=== PATIENT | female | born 1995 | race Caucasian/White ===

== ENCOUNTER 2022-02-01 22:11 | Inpatient (IN) ==
[2022-02-01] MEDS ORDERED: PENICILLIN G POTASSIUM 6 MU in DEXTROSE 5% 250 ML IV STA (22:53)
[2022-02-01] MEDS ORDERED: LIDOCAINE 1% LOCAL 20 ML VIAL INFIL PRN (22:53)
[2022-02-01] MEDS ORDERED: OXYTOCIN 30 UNITS/500 ML BAG IV PRN (22:53)
[2022-02-01] MEDS ORDERED: LACTATED RINGER'S 1,000 ML IV PRN (22:53)
[2022-02-01 23:23] LABS: Hematocrit (blood only) 34.6 % (34.1-44.9); Mean Corpuscular Hemoglobin 29.2 pg (25.0-34.0); Mean Corpuscular Hgb Conc 34.7 g/dL (32.0-36.0); Mean Corpuscular Volume 84.2 fL (80.0-100.0); Mean Platelet Volume 11.2 fL (9.4-12.3); Platelet Count 232 K/uL (130-400); Red Blood Count 4.11 M/uL (3.93-5.22); White Blood Count 12.99 K/ul (4.8-10.8)
[2022-02-01] MEDS ORDERED: BUPIVACAINE 0.25% 30 ML VIAL ONE (23:27)
[2022-02-01] MEDS ORDERED: LIDOCAINE 2%/EPINEPHRINE 1:200,000 20 ML SDV ONE (23:27)
[2022-02-01] MEDS ORDERED: ePHEDrine sulfate 50 MG/ML AMP ONE (23:27)
[2022-02-01] MEDS ORDERED: SODIUM CHLORIDE 0.9% INJ 10 ML VIAL ONE (23:27)
[2022-02-01] MEDS ORDERED: fentaNYL citrate 100 MCG/2 ML VIAL ONE (23:27)
[2022-02-01] MEDS ORDERED: fentaNYL 2MCG/ML ROPIVACAINE 1.25MG/ML 100 ML BAG EPI ONE (23:28)
[2022-02-01 23:47] LABS: Albumin Globulin Ratio 1.3 (0.9-2); Albumin Level 3.2 gm/dl (3.4-5.0); BUN Creatinine Ratio 11.5 (10-20); Bilirubin,Total 0.5 mg/dl (0.2-1.0); Calcium 8.6 mg/dl (8.5-10.1); Globulin 2.4 gm/dl (2.5-4.0); Total Protein 5.6 gm/dl (6.0-8.3)
[2022-02-02] MEDS ORDERED: ePHEDrine sulfate 50 MG/ML AMP IV PRN (00:24)
[2022-02-02] MEDS ORDERED: diphenhydrAMINE 50 MG/ML VIAL IV PRN (00:24)
[2022-02-02] MEDS ORDERED: NALOXONE HCL 0.4 MG/1 ML VIAL/CARP IV PRN (00:24)
[2022-02-02] MEDS ORDERED: fentaNYL 2MCG/ML ROPIVACAINE 1.25MG/ML 100 ML BAG EPI PRN (00:24)
[2022-02-02] MEDS ORDERED: ONDANSETRON INJ 2 MG/ML 2 ML VIAL IV PRN (00:24)
[2022-02-02] MEDS ORDERED: PROMETHAZINE HCL 6.25 MG in SODIUM CHLORIDE 0.9% 50 ML IV PRN (00:24)
[2022-02-02] MEDS ORDERED: NALOXONE HCL 1 MG in SODIUM CHLORIDE 0.9% 1000ML 1,000 ML IV PRN (00:24)
[2022-02-02] MEDS ORDERED: NALBUPHINE HCL INJ 10 MG/ML AMP IV PRN (00:24)
--- NOTE | 2022-02-02 00:24 | Anesthesiology Consultation ---
Date of Service February 02, 2022 Assessment & Plan Chart Review Chart Review: Patient NOT seen in Pre Admission Testing and Acceptable Risk for Labor Epidural Consults Requested none ASA ASA2 Proposed Anesthesia Anesthesia Type: Labor Epidural Risk / Benefits Reviewed With: PT / POA / Parent / Guardian, Accepts Plan and Informed Consent Obtained History Height/Weight Height: 5 ft 3 in Weight: 75.296 kg Allergies Allergy/AdvReac Type Severity Reaction Status Date / Time No Known Allergies Allergy Verified 02/01/22 22:30 Medications Home Medications Medication Instructions Recorded Confirmed Last Taken fexofenadine 180 mg tablet 180 mg PO Q24H 05/01/21 02/01/22 02/01/22 (Shona Allergy) prenat.vits,ghislaine,[id number]-inyt-uszxi 1 tab PO DAILY 07/03/21 02/01/22 02/01/22 Active Medications Generic Name Dose Route Start Last Admin Trade Name Freq PRN Reason Stop Dose Admin Lactated Ringer's 1,000 mls @ 125 mls/hr 02/01/22 22:53 02/02/22 00:00 Lr IV 02/03/22 22:52 125 mls/hr .Q8H PRN Infusion L&D Protocol Protocol Past Medical History Medical History LGSIL (low grade squamous intraepithelial dysplasia) Seasonal allergies Varicella vaccination Exercise / Class Metabolic Activity II 4-5 Yardwork/Stairs/Walk up hill Past Family History Family History Aunt Breast cancer paternal Father Prostate cancer Hypertension Grandmother (Maternal) Hypothyroid Denies family history of Ovarian cancer Colorectal cancer Past Surgical History Surgical History History of colposcopy [place] teeth extracted Past Anesthesia History No Hx of Anesthesia Complications and No Family Hx of Anesthesia Complications History of PONV No Hx of PONV and No Hx of Motion Sickness Social History Smoking Status: Never smoker Hx Alcohol Use: No Hx Substance Use: No substance use type: does not use Physical Exam Vital Signs Last Vital Signs Temp 37.4 C 02/01/22 22:25 Pulse 82 02/02/22 00:22 Resp 18 02/01/22 22:31 BP 139/92 02/02/22 00:22 Pulse Ox 99 02/02/22 00:20 ENMT Mouth: no dentition abnormality Thyromental Distance: > or= 3.5 Finger Breadths Mallampati Class: II Neck normal visual inspection Respiratory normal respiratory effort Auscultation: lungs clear to auscultation bilaterally Cardiovascular Rate/Rhythm: regular rate and regular rhythm Psychiatric Orientation: alert Testing Laboratory Results 02/01/22 23:12 02/01/22 23:12
[2022-02-02] MEDS ORDERED: PENICILLIN G POTASSIUM 3 MU in DEXTROSE 5% 100 ML IV PRN (01:53)
[2022-02-02] MEDS ORDERED: HYDROCORTISONE ACETATE 25 MG SUPP PR PRN (02:42)
[2022-02-02] MEDS ORDERED: DIPHTHERIA/TETANUS/PERTUSSIS 0.5 ML SYR/VIAL IM ONE (02:42)
[2022-02-02] MEDS ORDERED: OXYTOCIN 30 UNITS/500 ML BAG IV PRN (02:42)
[2022-02-02] MEDS ORDERED: BENZOCAINE 20% AER SPR 82.5 GM CAN EXT PRN (02:42)
[2022-02-02] MEDS ORDERED: ACETAMINOPHEN 325 MG TAB PO PRN (02:42)
[2022-02-02] MEDS: IBUPROFEN 600 MG TAB PO PRN ×3 (05:54→19:57)
--- NOTE | 2022-02-02 07:20 | History & Physical Report ---
Date of Service February 01, 2022 Assessment & Plan (1) Encounter for supervision of normal intrauterine in primigravida, antepartum: Plan: Lidia is a 26-year-old at 38 weeks 0 days gestational age presents with spontaneous rupture membranes in early labor. 1. Fetus: Cat 1 2. Labor:SROM/ Early labor' 3. GBS positive: PCN (2) Group beta Strep positive: (3) SROM (spontaneous rupture of membranes): (4) Normal labor and delivery: History of Present Illness Primary Care Provider: Lj Murillo is a 26-year-old at 38 weeks 0 days gestational age presents with leakage of fluid. complicated by abnormal Pap with colposcopy showing MARIOLA 2 and GBS positive. OB Labs: Blood Type A Positive 07/11/21 Antibody Screen NEGATIVE 07/11/21 Hemoglobin 12.2 g/dl (12.0-16.0) 11/27/21 Hematocrit 36.6 % (34.1-44.9) 11/27/21 Mean Corpuscular Volume 89.3 fL (80-100) 07/11/21 Platelet Count 291 K/uL (130-400) 07/11/21 Rubella IgG Antibody Immune (Immune) 07/11/21 Rapid Plasma Reagin Nonreactive (Nonreactive) 07/11/21 Hepatitis B Surface Antigen Neg (Neg) 07/11/21 Hepatitis C Antibody Neg (Neg) 07/11/21 HIV (1&2) Ab and P24 Ag, 4th Gener Neg (Neg) 07/11/21 Glucose 1 Hour 50 gm Load 151 mg/dl (70-130) H 11/27/21 OB Optional Labs: Chlamydia trachomatis RNA NOT DETECTED (NOT DETECTED) 07/11/21 Neisseria gonorrhoeae RNA NOT DETECTED (NOT DETECTED) 07/11/21 Labs Reviewed: cf/sma-negative--mln cfdna-low risk--mln declined AFP Allergies Allergy/AdvReac Type Severity Reaction Status Date / Time No Known Allergies Allergy Verified 02/01/22 22:30 Home Medications Medication Instructions Recorded Confirmed Type fexofenadine 180 mg tablet 180 mg PO Q24H 05/01/21 02/01/22 History (Shona Allergy) prenat.vits,ghislaine,[id number]-yual-lzaus 1 tab PO DAILY 07/03/21 02/01/22 History Patient History Medical History (Updated 02/02/22 @ 07:18 by Raffy Rivera MD) LGSIL (low grade squamous intraepithelial dysplasia) Seasonal allergies Varicella vaccination Surgical History History of colposcopy [place] teeth extracted Family History Aunt Breast cancer paternal Father Prostate cancer Hypertension Grandmother (Maternal) Hypothyroid Denies family history of Ovarian cancer Colorectal cancer Social History Smoking Status: Never smoker Second Hand Exposure: No; Hx Alcohol Use: No Hx Substance Use: No Preferred Language: German Communication Ability: Effective Division Supervisor Required: No Beliefs That Will Affect Care: None marital status: marital status details: Dana Templeton (27) [phone] Current Living Situation: Spouse Current Living Situation Comment: FOB and no pets current occupational status: employed current occupation: Physical therapist computer assistant Other Information That Helps Us Care for You: No Feels Safe at Home: Yes Safety Concerns: Feels Safe At This Time Assistive Devices: Glasses Physical Exam Genitourinary: Manual OB Exam: + cervical dilation 4 cm, + cervical effacement 90%, + station -1 and + amniotic fluid (SROM) clear OB Exam Monitor Tracing: + external FHT monitor used, + external uterine monitor used, + category I and + normal FHT variability; no early decelerations present, no late decelerations present and no variable decelerations Results & Data ([facility]) Vital Signs (Past 12 Hours) Vital Signs Temp Pulse Resp BP 02/01/22 22:31 18 02/01/22 22:44 81 143/95 H 02/01/22 22:25 18 02/01/22 22:25 37.4 C 18 02/01/22 22:27 80 140/92 Coding Level of Care Code None Diagnoses Encounter for supervision of normal intrauterine in primigravida, antepartum Z34.00 Group beta Strep positive B95.1 SROM (spontaneous rupture of membranes) Normal labor and delivery O80
--- NOTE | 2022-02-02 07:54 | Delivery Summary ---
DATE OF SERVICE: 02/02/2022 PROCEDURE: Normal spontaneous vaginal delivery with bilateral periurethral and first-degree perineal laceration repairs. SURGEON: Raffy Rivera MD PREOPERATIVE DIAGNOSES: 1. Single intrauterine at 38 weeks 0 days gestational age. 2. Spontaneous rupture of membranes in labor. 3. Abnormal Pap showing MARIOLA 2. 4. GBS positive. POSTOPERATIVE DIAGNOSES: 1. Single intrauterine at 38 weeks 0 days gestational age. 2. Spontaneous rupture of membranes in labor. 3. Abnormal Pap showing MARIOLA 2. 4. GBS positive. 5. Status post procedure. ESTIMATED BLOOD LOSS: 200 mL. DRAINS: Straight cath at the completion of the case. URINE OUTPUT: Per straight cath. COMPLICATIONS: None. FINDINGS: Viable with weight and Apgars pending. INDICATIONS: Lidia is a 26-year-old G1, P0, admitted at 38 weeks 0 days gestational age with spon taneous rupture of membranes in labor. The patient was initially found to be 4 cm dilated, 90% effac ed, negative 1 station. She progressed rapidly in labor to complete-complete, +2 station, at which t [place] she felt the urge to push and pushed for approximately 30 minutes to achieve delivery. DESCRIPTION OF PROCEDURE: The patient progressed to 10 cm dilated, 100% effaced, positive 2 station, pushed over intact perineum with epidural anesthesia and delivered a viable with weight and Apgars as noted above. Head of the delivered in MARIANA position, restituted to left transverse. No nuchal cord was noted. Body and shoulders quickly followed. was noted to be vigorous s oon after delivery and 1-minute delayed cord clamping was initiated. Cord was then double clamped an d cut. remained on maternal abdomen. Cord blood was obtained. Attention was then turned to delivery of the placenta, which was delivered intact, 3-vessel cord, gentle cord traction. On inspe ction of the perineum, vagina, cervix, there was noted to be a bilateral periurethral and a first-deg ree perineal lacerations, which were repaired with 3-0 Vicryl. Needle, sponge, and instrument counts were correct at the completion of the case. Both mother and were stable in the immediate po st-delivery period. Job ID: [id number]
[2022-02-02] MEDS: DOCUSATE SODIUM 100 MG CAP PO SCH ×2 (08:18→19:57)
[2022-02-02] MEDS: FERROUS SULFATE 325 MG TAB PO SCH (08:18)
[2022-02-02] MEDS: PRENATAL VITAMIN 1 TAB PO SCH (08:18)
[2022-02-02] MEDS ORDERED: POTASSIUM CHLORIDE CRTAB 20 MEQ TABCR PO ONE (09:00)
--- NOTE | 2022-02-02 09:03 | Anesthesia Procedure Note ---
Date of Service February 02, 2022 Anesthesia Post Epidural Note Vital Signs Vital Signs: Temp Pulse Resp BP Pulse Ox 99.3 F 78 18 122/80 98 02/02/22 02:47 02/02/22 08:02 02/02/22 05:43 02/02/22 08:02 02/02/22 02:45 Pain Intensity Bilateral Lower Abdomen: Pain Intensity: 8 Notes Mental Status: alert / awake / arousable and participated in evaluation Nausea / Vomiting: adequately controlled Pain: adequately controlled Airway Patency, RR, SpO2: stable & adequate BP & HR: stable & adequate Hydration State: stable & adequate Neuraxial Anesthesia: was administered and sensory block is resolving Anesthetic Complications: no major complications apparent and Pt Satisfied with anesthetic care Epidural: Removed without complications and With tip intact
--- NOTE | 2022-02-03 05:24 | Obstetrical Progress Note ---
Date of Service <Khloe KeatingDO nalini - Last Filed: 02/03/22 06:18> February 03, 2022 Assessment & Plan <Khloe KeatingDO nalini - Last Filed: 02/03/22 06:18> (1) care following vaginal delivery: Patient is PPD 1 s/p and doing well. - Eating well, voiding well, ambulating well - Vitals reviewed and within normal limits - Pain well controlled with analgesics - OOB, ambulation, diet progression as tolerated - Blood type: A+, GBS pos, rubella immune - Plan to discharge today- pt wishes to go home today - After discharge, 6 week follow up with Dr. Rivera <Misti Reed MD - Last Filed: 02/03/22 07:17> (1) care following vaginal delivery: Subjective <Khloe KeatingDO nalini - Last Filed: 02/03/22 06:18> Patient is a 26 yo female who is now PPD #1 following spontaneous vaginal delivery at 38 weeks. Reports feeling well this morning. She denies abdominal cramping and 1/10 pain well managed on analgesics. Voiding without issue. Tolerating regular meals overnight and able to ambulate some. She has passed gas but no bowel movements. Persistent lochia with some improvement this morning. Currently breast feeding. Pt expresses desires to go home today. Review of Systems Denies fever, chills, sweats. Denies SOB, difficulty breathing, chest pain, palpitations, and chest pressure. Denies breast pain. Denies dysuria. Denies headache or changes in vision. Physical Exam <Khloe MezaCydney Espinosa DO - Last Filed: 02/03/22 06:18> General: Alert and oriented. No acute distress. CV: Regular rate and rhythm. No murmurs. Respiratory: CTA bilaterally. No rhonchi, wheezes, or crackles. No increased work of breathing. Abdomen: Positive bowel sounds. Soft, nontender, non distended. Uterus: Fundus firm and palpable 3 cm below the umbilicus. Lower extremities: No LE edema. No deep calf pain. Black's negative bilaterally. Results & Data ([facility]) <Khloe MezaCydney Espinosa DO - Last Filed: 02/03/22 06:18> Vital Signs (Past 12 Hours) Vital Signs Temp Pulse Resp BP Pulse Ox O2 Del Method 02/02/22 23:17 36.8 C 81 18 126/88 98 Room Air 02/02/22 20:10 36.8 C 85 18 124/80 <Misti Reed MD - Last Filed: 02/03/22 07:17> Co-Signing Physician Notes Resident Physician Supervision Note: I interviewed and examined the patient. Discussed with Dr. Espinosa and agree with findings and plan as documented in the note. Any exceptions or clarifications are listed here: Patient desires d/c but peds may want another day of observation of the infant due to GBS+ with inadequate treatment. Pt aware. Documented By: Misti Reed MD, FACOG Resident Activity Tracking <Khloe Espinosa, - Last Filed: 02/03/22 06:18> Resident Involvement: Resident Care Provided Care Provided: OB Delivery
[2022-02-03 06:39] LABS: Hematocrit (blood only) 31.6 % (34.1-44.9); Hemoglobin 10.6 g/dl (12.0-16.0)
[2022-02-03] MEDS: PRENATAL VITAMIN 1 TAB PO SCH (07:30)
[2022-02-03] MEDS: IBUPROFEN 600 MG TAB PO PRN ×3 (07:30→23:15)
[2022-02-03] MEDS: FERROUS SULFATE 325 MG TAB PO SCH (07:30)
[2022-02-03] MEDS: DOCUSATE SODIUM 100 MG CAP PO SCH ×2 (07:30→20:24)
[2022-02-03 19:55] LABS: Basophils # (auto) 0.05 K/uL (0-0.2); Basophils % (auto) 0.4 %; Eosinophils # (auto) 0.18 K/uL (0-0.50); Eosinophils % (auto) 1.4 %; Hematocrit (blood only) 30.3 % (34.1-44.9); Hemoglobin 10.3 g/dl (12.0-16.0); Immature Granulocytes # (auto) 0.13 K/uL (0.00-0.02); Lymphocytes # (auto) 1.92 K/uL (1.2-3.4); Lymphocytes % (auto) 15.1 %; Mean Corpuscular Hemoglobin 29.6 pg (25.0-34.0); Mean Corpuscular Volume 87.1 fL (80.0-100.0); Monocytes # (auto) 0.74 K/uL (0.24-0.82); Monocytes % (auto) 5.8 %; Neutrophils % (auto) 76.3 %; Platelet Count 188 K/uL (130-400); RDW Coefficient of Variation 13.5 % (11.5-14.5); RDW Standard Deviation 41.4 fL (36.4-46.3); Red Blood Count 3.48 M/uL (3.93-5.22); White Blood Count 12.72 K/ul (4.8-10.8)
[2022-02-03] MEDS ORDERED: bisacodyL 5 MG TABEC PO SCH (20:00)
[2022-02-03 20:15] LABS: Albumin Globulin Ratio 1.1 (0.9-2); Albumin Level 2.8 gm/dl (3.4-5.0); BUN Creatinine Ratio 12.7 (10-20); Bilirubin,Total 0.2 mg/dl (0.2-1.0); Calcium 7.8 mg/dl (8.5-10.1); Creatinine Clr Calc Pharmacy 117.7 ml/min; Est GFR (African American) 137.2 ml/min; Est GFR (Non-African American) 118.4 ml/min; Globulin 2.5 gm/dl (2.5-4.0); Potassium 3.2 mmol/L (3.5-5.1); Total Protein 5.3 gm/dl (6.0-8.3)
[2022-02-04] MEDS: IBUPROFEN 600 MG TAB PO PRN ×2 (03:06→07:54)
[2022-02-04] MEDS: DOCUSATE SODIUM 100 MG CAP PO SCH (07:54)
[2022-02-04] MEDS: PRENATAL VITAMIN 1 TAB PO SCH (07:54)
[2022-02-04] MEDS: FERROUS SULFATE 325 MG TAB PO SCH (07:54)
--- NOTE | 2022-02-04 08:26 | Obstetrical Progress Note ---
Date of Service February 04, 2022 Assessment & Plan (1) care following vaginal delivery: BP's now normal range will have her get a BP check in the office this week reviewed pre-eclampsia symptoms and signs discharge to home Subjective Ambulation: ambulating normally Voiding: no voiding problems Passing Gas:: Yes Diet Tolerance:: regular diet Lochia:: Small Feeding Type:: breast feeding had elevated BP yesterday but PET was all normal. she had a headache at that time which she describes as her usual sinus type headache. headache is resolved now. Review of Systems All systems reviewed & are unremarkable except as noted in HPI & below Physical Exam Constitutional WD/WN, vitals as above Psychiatric A+Ox3, euthymic affect Genitourinary OB Exam Abdomen: + fundal height Fundus: + firm and + relation to umbilicus (2 below U) Results & Data ([facility]) Vital Signs (Past 12 Hours) Vital Signs Temp Pulse Pulse Resp BP Pulse Ox O2 Del Method 02/04/22 07:35 98.4 F 78 18 123/83 Room Air 02/03/22 23:01 98.1 F 70 16 137/88 100 Room Air
== END 2022-02-04 11:00 | disposition home or self-care (01) | DRG 807 ==
LOC: OPB 22:11 → 4S1 22:15 → 4E2 02-02 14:29

== ENCOUNTER 2024-05-07 15:03 | Inpatient (IN) ==
[2024-05-07 16:59] LABS: Hematocrit (blood only) 37.4 % (37.0-47.0); Mean Corpuscular Hemoglobin 28.8 pg (25.0-34.0); Mean Corpuscular Hgb Conc 34.8 g/dL (32.0-36.0); Mean Corpuscular Volume 82.9 fL (80.0-100.0); Mean Platelet Volume 10.8 fL (9.4-12.4); Platelet Count 228 K/uL (130-400); RDW Coefficient of Variation 14.6 % (11.5-14.5); RDW Standard Deviation 43.9 fL (36.4-46.3); Red Blood Count 4.51 M/uL (4.20-5.40); White Blood Count 14.97 K/ul (4.8-10.8)
[2024-05-07 17:01] LABS: Creatinine Urine Random 37.5 mg/dl; Protein Creatinine Ratio Urine 0.4 (0-0.2); Total Protein Urine Random 16.1 mg/dl (0-11.9)
[2024-05-07 17:20] LABS: Albumin Globulin Ratio 1.3 (0.9-2); Albumin Level 3.5 gm/dl (3.4-5.0); BUN Creatinine Ratio 19.6 (10-20); Bilirubin,Total 0.5 mg/dl (0.2-1.0); Calcium 9.1 mg/dl (8.6-10.3); Globulin 2.8 gm/dl (2.5-4.0); Potassium 3.8 mmol/L (3.5-5.1); Total Protein 6.3 gm/dl (6.0-8.3)
[2024-05-07] MEDS ORDERED: LIDOCAINE 1% LOCAL 20 ML VIAL INFIL PRN (17:41)
[2024-05-07] MEDS ORDERED: OXYTOCIN 30 UNITS/NSS 30 UNITS/500 ML BAG IV PRN (17:41)
--- NOTE | 2024-05-07 17:52 | History & Physical Report ---
Date of Service May 07, 2024 Assessment & Plan (1) Supervision of normal intrauterine in multigravida: (2) GBS carrier: (3) PROM (premature rupture of membranes): (4) High blood pressure affecting , antepartum: Plan 28 yo at 36 6/7 wga diagnosed w/ PROM Mild range bps thus far, upc was 0.4 however sent before dx of prom so not sure if truly elevated. Has not met 4 hr barrera yet so will contnue to monitor if meets ghtn criteria fetus cat 1 labor - will start pit GBS+, pcn ordered. discussed late onset gbs not necessarily r/t intrapartum adequacy of treatment as noted in discussion w/ peds, will start now epidural prn History of Present Illness Chief Complaint: LOF Primary Care Provider: Luistio Tena MD 28 yo at 36 6/7 wga presented for eval due to LOF and elev BPs in the office. +FM; denies regular ctx, VB. 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 denies hx stis Allergies Allergy/AdvReac Type Severity Reaction Status Date / Time No Known Allergies Allergy Verified 05/07/24 14:27 Home Medications Medication Instructions Recorded Confirmed Type fexofenadine 180 mg tablet 180 mg PO Q24H 05/01/21 05/07/24 History (Shona Allergy) 21-iron fu-folic acid 1 tab PO DAILY 10/10/23 05/07/24 History [ Complete] ferrous sulfate 325 mg (65 mg 325 mg PO DAILY 04/10/24 05/07/24 History iron) tablet (Feosol) Patient History Medical History (Updated 05/07/24 @ 17:52 by Lidia Ji MD) Varicella vaccination LGSIL (low grade squamous intraepithelial dysplasia) Seasonal allergies Surgical History History of colposcopy [place] teeth extracted Family History Aunt Breast cancer Father Prostate cancer Hypertension Grandmother (Maternal) Hypothyroid Denies family history of Ovarian cancer Lung cancer Colorectal cancer Social History Smoking Status: Never smoker Second Hand Exposure: No; Do You Dip or Chew Tobacco: No; Hx Alcohol Use: No Hx Substance Use: No Preferred Language: Greek Communication Ability: Effective Visual Impairment: Limited Hearing Ability: Normal Transfer Controller Required: No Beliefs That Will Affect Care: None marital status: marital status details: Dana Templeton (29) [phone] Current Living Situation: Spouse and Family Current Living Situation Comment: lives with spouse, child and no pets current occupational status: employed current occupation: Physical therapist junior assistant manager Other Information That Helps Us Care for You: No Feels Safe at Home: Yes Safety Concerns: Feels Safe At This Time Diet: regular caffeine: Yes (1 cup of coffee daily ) during the past year weight has: increased > 10 lbs Dental Care, Regularly: Yes Physical Activity Frequency: 3-4 Times per Week Seatbelt Use: always Sunscreen Use: Yes Assistive Devices: Glasses Physical Exam 2 Genitourinary: OB Exam Abdomen: + vertex and + estimated weight (7-8) Manual OB Exam: + cervical dilation 2 cm, + cervical effacement 50%, + station - 2 and + amniotic fluid (+nitrazine, ferning) OB Exam Monitor Tracing: + external FHT monitor used, + external uterine monitor used (irregular) and + category I (145/mod/+accel/-decel) Results & Data Vital Signs (Past 12 Hours) Vital Signs Temp Pulse Resp BP 05/07/24 17:45 103 H 149/99 H 05/07/24 17:29 89 132/87 05/07/24 17:13 95 H 128/99 05/07/24 17:00 106 H 122/91 05/07/24 16:43 105 H 131/93 05/07/24 15:33 98.2 F 100 H 20 129/91 05/07/24 15:27 100 H 129/91 05/07/24 15:26 98.2 F 103 H 127/93 Laboratory Results OB Labs: Blood Type A Positive 10/21/23 Antibody Screen NEGATIVE 10/21/23 Hgb 11.5 g/dl (12.0-16.0) L 03/24/24 Hct 34.1 % (37.0-47.0) L 03/24/24 MCV 84.6 fL (80.0-100.0) 03/24/24 Plt Count 218 K/uL (130-400) 03/24/24 Rubella IgG Antibody Immune (Immune) 10/21/23 RPR Nonreactive (Nonreactive) 10/21/23 Treponema pallidum Ab Negative (Negative) 03/09/24 Hep Bs Antigen Negative (Negative) 10/21/23 Hepatitis C Antibody Negative (Negative) 04/10/24 HIV 1&2 Ab/P24 Ag 4thGn Negative (Negative) 04/10/24 Glucose 1 Hr 50 gm 157 mg/dl (70-130) H 03/09/24 OB Optional Labs: Chlamydia trachomatis RNA Not Detected (NotDetected) 10/21/23 Neisseria gonorrhoeae RNA Not Detected (NotDetected) 10/21/23 Labs Reviewed: cf/sma-negative prior --mln Declines cfdna--mln declined quad and msafp--smp Diagnostic Findings post plac Coding Level of Care Code None Diagnoses Supervision of normal intrauterine in multigravida Z34.80 GBS carrier Z22.330 PROM (premature rupture of membranes) O42.90 High blood pressure affecting , antepartum O16.9
[2024-05-07] MEDS: CALCIUM CARBONATE 500 MG CHEWABLE TAB PO PRN (18:20)
[2024-05-07] MEDS: PENICILLIN GK 6 MU in SODIUM CHLORIDE 0.9% 250 ML IV STA (18:29)
[2024-05-07] MEDS: OXYTOCIN 30 UNITS/NSS 30 UNITS/500 ML BAG IV PRN (19:10)
[2024-05-07] MEDS: SODIUM CHLORIDE 0.9% 1,000 ML IV SCH (19:57)
[2024-05-07] MEDS ORDERED: Nursing to Pharmacy Communication SCH ×2 (20:30→23:45)
[2024-05-07] MEDS ORDERED: NALOXONE HCL 0.4 MG/1 ML VIAL/CARP IV PRN (20:40)
[2024-05-07] MEDS ORDERED: BUPIVACAINE 0.25% PF 30 ML VIAL EPI PRN (20:40)
[2024-05-07] MEDS ORDERED: fentaNYL citrate PF 100 MCG/2 ML VIAL EPI PRN (20:40)
[2024-05-07] MEDS ORDERED: SODIUM CHLORIDE 0.9% PF INJ 10 ML VIAL EPI PRN (20:40)
[2024-05-07] MEDS ORDERED: LIDOCAINE 2% MPF LOCAL 5 ML VIAL EPI PRN (20:40)
[2024-05-07] MEDS ORDERED: ONDANSETRON INJ 2 MG/ML 2 ML VIAL IV PRN (20:40)
[2024-05-07] MEDS ORDERED: NALOXONE HCL 1 MG in SODIUM CHLORIDE 0.9% 1,000 ML IV PRN (20:40)
[2024-05-07] MEDS ORDERED: ROPIVACAINE 0.5% PF 5 MG/ML 20 ML VIAL EPI PRN (20:40)
[2024-05-07] MEDS ORDERED: NALBUPHINE HCL INJ 10 MG/ML AMP IV PRN (20:40)
[2024-05-07] MEDS ORDERED: diphenhydrAMINE 50 MG/ML VIAL IV PRN (20:40)
--- NOTE | 2024-05-07 20:42 | Anesthesiology Consultation ---
Date of Service May 07, 2024 Assessment & Plan (1) Encounter for pre-operative examination: Chart Review Chart Review: Patient NOT seen in Pre Admission Testing and Acceptable Risk for Labor Epidural Consults Requested none History Height/Weight Height: 5 ft 3 in Weight: 75.75 kg Allergies Allergy/AdvReac Type Severity Reaction Status Date / Time No Known Allergies Allergy Verified 05/07/24 14:27 Medications Home Medications Medication Instructions Recorded Confirmed Last Taken fexofenadine 180 mg tablet 180 mg PO Q24H 05/01/21 05/07/24 05/07/24 06:00 (Shona Allergy) 21-iron fu-folic acid 1 tab PO DAILY 10/10/23 05/07/24 05/07/24 06:00 [ Complete] ferrous sulfate 325 mg (65 mg 325 mg PO DAILY 04/10/24 05/07/24 05/07/24 06:00 iron) tablet (Feosol) Active Medications Generic Name Dose Route Start Last Admin Trade Name Freq PRN Reason Stop Dose Admin Calcium Carbonate 1,500 mg 05/07/24 18:12 05/07/24 18:20 Calcium Carbonate 500 Mg Chewable Tab PO 06/06/24 18:11 1,500 mg Q4 PRN Administration Indigestion Oxytocin 30 units in 500 mls @ 4 mls/hr 05/07/24 17:41 05/07/24 19:55 Pitocin 30 Units/Nss IV 05/09/24 17:40 0.24 units/hr .Q24H PRN 4 mls/hr Labor Induction/Augmentation Titration Protocol 0.24 UNITS/HR Sodium Chloride 1,000 mls @ 50 mls/hr 05/07/24 18:30 05/07/24 20:43 Nss IV 05/08/24 18:29 50 mls/hr .Q20H HELEN Infusion Past Medical History Medical History (Updated 05/07/24 @ 20:42 by Asael Almeida MD) Encounter for pre-operative examination Varicella vaccination LGSIL (low grade squamous intraepithelial dysplasia) Seasonal allergies Exercise / Class Metabolic Activity II 4-5 Yardwork/Stairs/Walk up hill Past Family History Family History Aunt Breast cancer paternal Father Prostate cancer Hypertension Grandmother (Maternal) Hypothyroid Denies family history of Ovarian cancer Lung cancer Colorectal cancer Past Surgical History Surgical History History of colposcopy [place] teeth extracted Past Anesthesia History No Hx of Anesthesia Complications and No Family Hx of Anesthesia Complications History of PONV No Hx of PONV and No Hx of Motion Sickness Social History Smoking Status: Never smoker Do You Dip or Chew Tobacco: No Hx Alcohol Use: No Hx Substance Use: No substance use type: does not use Physical Exam Vital Signs Last Vital Signs Temp 36.5 C 05/07/24 19:15 Pulse 91 H 05/07/24 21:33 Resp 18 05/07/24 19:20 BP 126/84 05/07/24 21:33 Pulse Ox 98 05/07/24 21:31 Testing Laboratory Results 05/07/24 16:42 05/07/24 16:42
[2024-05-07] MEDS: BUPIVACAINE 0.25% PF 30 ML VIAL EPI STA (21:22)
[2024-05-07] MEDS: fentaNYL citrate PF 100 MCG/2 ML VIAL EPI STA (21:22)
[2024-05-07] MEDS: fentANYL 2 MCG/ML BUPIVacaine 0.125%-NSS 100ML BAG EPI PRN (21:40)
[2024-05-07] MEDS: ePHEDrine sulfate 50 MG/ML AMP IV PRN (21:45)
[2024-05-07] MEDS: PENICILLIN GK 3 MU in DEXTROSE 5% 100 ML IV PRN (22:01)
[2024-05-07] MEDS: LIDOCAINE 2%/EPINEPHRINE 1:200,000 20 ML PF ONE (22:09)
[2024-05-07] MEDS: fentANYL 2 MCG/ML BUPIVacaine 0.125%-NSS 100ML BAG ONE (22:09)
[2024-05-07] MEDS: fentaNYL citrate PF 100 MCG/2 ML VIAL ONE (22:09)
[2024-05-07] MEDS: SODIUM CHLORIDE 0.9% PF INJ 10 ML VIAL ONE (22:09)
[2024-05-07] MEDS: SODIUM CHLORIDE 0.9% PF INJ 10 ML VIAL EPI STA (22:09)
[2024-05-07] MEDS: ePHEDrine sulfate 50 MG/ML AMP ONE (22:09)
[2024-05-07] MEDS: BUPIVACAINE 0.25% PF 30 ML VIAL ONE (22:09)
[2024-05-07] MEDS: LIDOCAINE 2%/EPINEPHRINE 1:200,000 20 ML PF EPI STA (22:10)
--- NOTE | 2024-05-07 23:30 | Labor Progress Brief Note ---
Date of Service May 07, 2024 Subjective comfortable w/ epidural Assessment & Plan (1) Supervision of normal intrauterine in multigravida: (2) GBS carrier: (3) PROM (premature rupture of membranes): (4) Gestational hypertension: Plan 28 yo at 36 6/7 wga diagnosed w/ PROM Meets criteria for ghtn, will continue to monitor fetus cat 1 labor - pit at 6, forebag ruptured for clear fluid GBS+, pcn ordered. s/p 2nd dose epidural in place Admission and Anticipated Discharge Date Admission Date: May 07, 2024 Physical Exam Genitourinary: Manual OB Exam: + cervical dilation 3 cm, + cervical effacement 50% and + station -2 OB Exam Monitor Tracing: + external FHT monitor used, + external uterine monitor used (q3-4) and + category I (140/mod/+accel/-decel) Results & Data Vital Signs (Past 12 Hours) Vital Signs Temp Pulse Resp BP Pulse Ox 05/07/24 23:26 104 H 98 05/07/24 23:21 99 H 98 05/07/24 23:16 98 H 99 05/07/24 23:13 105 H 130/91 05/07/24 23:11 96 H 99 05/07/24 23:06 93 H 99 05/07/24 23:01 83 98 05/07/24 23:00 18 05/07/24 23:00 18 05/07/24 22:58 88 125/93 05/07/24 22:56 92 H 98 05/07/24 22:51 84 99 05/07/24 22:46 84 98 05/07/24 22:44 83 132/93 05/07/24 22:41 90 99 05/07/24 22:36 80 99 05/07/24 22:31 83 99 05/07/24 22:30 18 05/07/24 22:30 18 05/07/24 22:28 91 H 130/95 05/07/24 22:26 87 98 05/07/24 22:21 89 99 05/07/24 22:16 87 99 05/07/24 22:13 99 H 139/86 05/07/24 22:11 93 H 99 05/07/24 22:06 96 H 99 05/07/24 22:01 89 98 05/07/24 21:58 99 H 137/98 05/07/24 21:56 86 99 05/07/24 21:55 110 H 129/81 05/07/24 21:53 87 131/88 05/07/24 21:51 99 05/07/24 21:51 111 H 05/07/24 21:51 91 H 126/78 05/07/24 21:49 89 126/88 05/07/24 21:47 74 130/86 05/07/24 21:46 74 99 05/07/24 21:44 72 122/60 05/07/24 21:41 97 05/07/24 21:41 114 H 05/07/24 21:41 92 H 121/72 05/07/24 21:39 105 H 118/76 05/07/24 21:37 115 H 120/80 05/07/24 21:36 112 H 98 05/07/24 21:35 112 H 119/77 05/07/24 21:33 91 H 126/84 05/07/24 21:31 99 H 129/88 98 05/07/24 21:26 89 96 05/07/24 21:21 87 96 05/07/24 21:19 86 131/91 05/07/24 21:16 102 H 98 05/07/24 21:15 18 05/07/24 21:15 98.4 F 18 05/07/24 21:11 101 H 98 05/07/24 21:06 97 H 98 05/07/24 21:02 96 H 132/93 05/07/24 21:01 99 H 98 05/07/24 20:56 90 98 05/07/24 20:51 92 H 99 05/07/24 20:46 92 H 98 05/07/24 20:43 92 H 136/92 05/07/24 20:41 96 H 98 05/07/24 20:36 94 H 99 05/07/24 20:31 92 H 99 05/07/24 20:26 105 H 98 05/07/24 20:21 91 H 99 05/07/24 20:00 95 H 140/105 H 05/07/24 19:30 96 H 140/92 05/07/24 19:20 18 05/07/24 19:20 18 05/07/24 19:19 96 H 146/105 H 05/07/24 19:15 97.7 F 05/07/24 18:59 116 H 134/93 05/07/24 18:45 91 H 131/87 05/07/24 18:29 102 H 131/87 05/07/24 18:14 108 H 133/94 05/07/24 17:59 96 H 138/91 05/07/24 17:45 103 H 149/99 H 05/07/24 17:29 89 132/87 05/07/24 17:13 95 H 128/99 05/07/24 17:00 106 H 122/91 05/07/24 16:43 105 H 131/93 05/07/24 15:33 98.2 F 100 H 20 129/91 05/07/24 15:27 100 H 129/91 05/07/24 15:26 98.2 F 103 H 127/93 Coding Level of Care Code None Diagnoses Supervision of normal intrauterine in multigravida Z34.80 GBS carrier Z22.330 PROM (premature rupture of membranes) O42.90 Gestational hypertension O13.9
[2024-05-08] MEDS ORDERED: OXYTOCIN 30 UNITS/NSS 30 UNITS/500 ML BAG IV PRN (02:41)
[2024-05-08] MEDS ORDERED: HYDROCORTISONE ACETATE 25 MG SUPP PR PRN (02:41)
[2024-05-08] MEDS ORDERED: bisacodyL 10 MG SUPP PR PRN (02:41)
--- NOTE | 2024-05-08 02:44 | Delivery Summary ---
Vaginal Delivery Summary Date of Service May 08, 2024 Vaginal Delivery Summary [facility] PREOPERATIVE DIAGNOSIS: 1. Single intrauterine at 37 wga 2. Premature rupture of membranes 3. Gestational hypertension 4. Prior infant with late onset GBS POSTOPERATIVE DIAGNOSIS: 1. Single intrauterine at 37 wga 2. Premature rupture of membranes 3. Gestational hypertension 4. Prior with late onset GBS 5. Shoulder dystocia 6. Delivered PROCEDURE: 1. Normal spontaneous vaginal delivery. SURGEON: Lidia Ji MD ANESTHESIA: Epidural. QUANTITATIVE BLOOD LOSS: 75 mL FLUIDS: Continuous LR. URINE OUTPUT: None. COMPLICATIONS: None. CONDITION: Stable. INDICATIONS: 28 yo at 37 wga presented for evaluation due to leaking of fluid and elevated BPs. She was found to be PROM and admitted. She received penicillin for GBS positive status and pitocin to start induction after being found to be 1.5cm. She received an epidural for pain control and underwent ROM of forebag. She rapidly progressed to complete and desired to push. FINDINGS: A viable male infant, weight pending with Apgars of 5 and 8 at 1 and 5 minutes respectively. SPECIMEN: Cord blood, cord gases OPERATIVE REPORT: The patient progressed to 10 cm, 100% effaced and +2 station, pushed over intact perineum with anesthesia to deliver a viable male infant, weight and Apgars as above. Head of delivered in RAHAT position. Nuchal cord was reduced. Body and shoulders did not deliver easily with gentle traction so shoulder dystocia was called. Head of bed was lowered, suprapubic pressure and McRobert's maneuver were performed and anterior shoulder delivered spontaneously. Remainder of shoulders and body delivered without difficulty Delayed cord clamping was deferred due to dystocia. Cord was clamped and cut. Cord segment and blood were obtained. Placenta delivered spontaneously intact with 3-vessel cord. IV oxytocin and fundal massage were given for excellent hemostasis. Vagina, cervix, perineum, and placenta were inspected. Hemostatic bilateral labial abrasions noted and did not need repaired. Sponge and needle counts correct x2. No sponges were left behind. Mother and stable in immediate period. Total dystocia time was 60 seconds, events reviewed with patient and FOB in detail. Questions answered to apparent satisfaction [facility] [place] Vaginal Delivery Charge Vaginal Delivery Codes: 71384 global code for the antepartum, delivery, and post- Delivery Type Details:
[2024-05-08 03:17] LABS: Base Excess Cord Venous Blood -4.9 mEq/L (-7.7-1.9); CO2 Cord Arterial Blood 66 mmHg (39.1-73.5); Cord Venous Blood HCO3 20 mmol/L (18.4-26.8); Cord Venous Blood PCO2 35 mmHg (30.4-57.2); Cord Venous Blood PO2 38 mmHg (14.1-43.3); Cord Venous Blood pH 7.36 (7.20-7.44); HCO3 Cord Arterial Blood 23 mmol/L (19.7-28.5); O2 Saturation Cord Venous Bld 69.4 % (<68); Oxygen Sat Cord Arterial Blood < 60.0 % (<60); PO2 Cord Arterial Blood < 20 mmHg (4.1-31.7); pH Cord Arterial Blood 7.15 (7.1-7.38)
[2024-05-08] MEDS: BENZOCAINE 20% SPRY 85 APPLN/85 GM CAN EXT PRN (04:30)
[2024-05-08] MEDS: IBUPROFEN 600 MG TAB PO PRN (04:30)
--- NOTE | 2024-05-08 07:15 | Anesthesia Procedure Note ---
Date of Service May 08, 2024 Anesthesia Post Epidural Note Vital Signs Vital Signs: Temp Pulse Resp BP Pulse Ox O2 Del Method 97.9 F 92 H 18 124/86 98 Room Air 05/08/24 05:05 05/08/24 05:05 05/08/24 05:05 05/08/24 05:05 05/08/24 02:31 05/08/24 05:05 Notes Mental Status: alert / awake / arousable and participated in evaluation Nausea / Vomiting: adequately controlled Pain: adequately controlled Airway Patency, RR, SpO2: stable & adequate BP & HR: stable & adequate Hydration State: stable & adequate Neuraxial Anesthesia: was administered and sensory block is resolving Anesthetic Complications: no major complications apparent and Pt Satisfied with anesthetic care Epidural: Removed without complications and With tip intact
[2024-05-08] MEDS: FERROUS SULFATE 325 MG TAB PO SCH (08:36)
[2024-05-08] MEDS: PRENATAL VITAMIN 1 TAB PO SCH (08:36)
[2024-05-08] MEDS: DOCUSATE SODIUM 100 MG CAP PO SCH (08:36)
[2024-05-08 09:14] VITALS: RESP 16
[2024-05-08] MEDS: DIPHTHER/TETAN/PERTUS Vaccine (Tdap, Adol/Adult) 0.5mL IM ONE (10:45)
[2024-05-08] MEDS: ACETAMINOPHEN 325 MG TAB PO PRN (17:09)
[2024-05-09 07:57] VITALS: BP 119/85; PULSE 84; TEMP 97.9; O2SAT 98
--- NOTE | 2024-05-09 08:17 | Obstetrical Progress Note ---
Date of Service May 09, 2024 Assessment & Plan (1) Gestational hypertension: (2) Normal spontaneous vaginal delivery: Plan Both mom and baby doing well. Discharge today as per protocol. Follow up for BP check in 1 week. Admission and Anticipated Discharge Date Admission Date: May 07, 2024 Supervising Physician Co-Signing Physician Notes Resident Physician Supervision Note: I interviewed and examined the patient. Discussed with Dr. Jimenez and agree with findings and plan as documented in the note. Any exceptions or clarifications are listed here: Doing well. Blood pressures are normal. Plan d/c. Instructions given. f/u in office for bp check in one week. Documented By: Melania Ferrell MD, FACOG Subjective #[id number] following at 36+6 WGA No active complains Both mom and baby doing well. Pain: Mild, intermittent Lochia: Moderate Diet: Regular Ob diet Gas: Aware of passing, no abdominal distension Peeing: Normal, no bladder distension Ambulation: Normally Review of Systems 2 Review of Systems: No SOB, chest pain, leg pain No dizziness, headache, palpitation No Blurring of vision , fever Physical Exam Physical Exam: General: Alert and oriented. No acute distress. CVS: S1 S2+ No murmurs, regular rhythm. Respiratory: CTA bilaterally. No rhonchi, wheezes, or crackles. No increased work of breathing. Abdomen: Bowel sound +. Soft, nontender Uterus: Fundus firm and palpable few cm below the umbilicus. Lower extremities: No LE edema. No deep calf pain. Results & Data Vital Signs (Past 12 Hours) Vital Signs Temp Pulse Resp BP Pulse Ox O2 Del Method 05/09/24 07:27 36.6 C 84 16 119/85 98 Room Air 05/08/24 23:09 36.3 C L 88 16 127/83 97 Room Air
[2024-05-09] MEDS ORDERED: bisacodyL 5 MG TABEC PO SCH (20:00)
== END 2024-05-09 13:33 | disposition home or self-care (01) | DRG 807 ==
LOC: OPB 15:03 → 4S1 15:05 → 4E2 05-08 05:04